=== PATIENT | female | born 1980 | race American Indian/Alaskan Native ===

== ENCOUNTER 2018-11-11 22:42 | Inpatient (IN) | payer SELFPAY ==
[2018-11-11] MEDS ORDERED: LACTATED RINGERS 1,000 ML IV ONE (23:13)
[2018-11-12] MEDS ORDERED: AMPICILLIN/NS 2 GM/100 ML 2 GM/100 ML BAG IV ONE ×2 (01:25→03:37)
[2018-11-12] MEDS ORDERED: PITOCin/NS 30 UNIT/500ML 30,000 MILLIUNITS/500 ML BAG IV ONE (01:26)
--- NOTE | 2018-11-12 01:59 | Ultrasound Report ---
US OB BPP wo non-stress INDICATION / CLINICAL INFORMATION: NRNST. COMPARISON: None available. FINDINGS: Single intrauterine gestation is identified in the cephalic presentation. heart rate 150 grade 2 anterior placenta is free of the os. Amniotic fluid by decreased. OTIS is 6. measurements: BPD 9.8 equal to 40 weeks 2 Head circumference 34.1 equal to 39 weeks 1 day Abdominal circumference 35.2 = 39 weeks 1 day Femur length 7.9=40 weeks 3 days Estimated body weight 3827 Biophysical profile score is 8 of 8. Signer Name: Juice Marino MD Signed: 11/12/2018 1:54 AM Workstation Name: [id number]
[2018-11-12] MEDS ORDERED: AMPICILLIN/NS 1 GM/50 ML 1 GM/50 ML BAG IV SCH (02:00)
[2018-11-12 02:13] LABS: Basophils % (Auto) 0.6 % (0.0-1.8); Eosinophils # (Auto) 0.1 K/mm3 (0.0-0.4); Eosinophils % (Auto) 0.9 % (0.0-4.3); Hematocrit 37.2 % (30.3-42.9); Hemoglobin 12.4 gm/dl (10.1-14.3); Lymphocytes # (Auto) 1.5 K/mm3 (1.2-5.4); Lymphocytes % (Auto) 19.9 % (13.4-35.0); Mean Corpuscular HGB Conc 33 % (30-34); Mean Corpuscular Volume 90 fl (79-97); Monocytes # (Auto) 0.7 K/mm3 (0.0-0.8); Monocytes % (Auto) 8.7 % (0.0-7.3); Platelet Count 191 K/mm3 (140-440); Red Blood Count 4.12 M/mm3 (3.65-5.03); Red Cell Distribution Width 16.3 % (13.2-15.2)
[2018-11-12] MEDS ORDERED: LACTATED RINGERS 1,000 ML IV SCH ×2 (03:00→04:00)
--- NOTE | 2018-11-12 03:03 | History and Physical Report ---
History of Present Illness Date of admission: 11/12/18 01:03 Chief complaint: uterine contractions History of present illness: 38yo 39 6/7 weeks presents to L&D complaining of uterine contractions and vaginal spotting. She has had no care this . She is from [facility] by way of [facility]. She reports good movement and no loss of fluid. An ultrasound was done revealing a at 39 6/7 weeks, cephalic presentation, OTIS 6.4. She is having occasional variables on NST. Past History Social history: other (no care, youngest child is 12) - Obstetrical History : 4 Number of Living Children: 3 Medications and Allergies Allergies Allergy/AdvReac Type Severity Reaction Status Date / Time No Known Allergies Allergy Unverified 11/11/18 23:11 Active Meds: Active Medications Oxytocin/Sodium Chloride (Pitocin/Ns 30 Unit/500ml) 30,000 milliunits in 500 mls @ 2 mls/hr IV DIRECT ONE; Protocol Stop: 11/22/18 11:25 Last Titration: 11/12/18 02:50 Dose: 6 milliunits/min, 6 mls/hr Documented by: Ampicillin Sodium (Ampicillin/Ns 1 Gm/50 Ml) 1 gm in 50 mls @ 100 mls/hr IV Q4HR JOHN Lactated Ringer's (Lactated Ringers) 1,000 mls @ 125 mls/hr IV DIRECT JOHN Last Admin: 11/12/18 02:44 Dose: 125 mls/hr Documented by: - Vital Signs Vital signs: Vital Signs Pulse BP 101 H 108/74 11/12/18 01:56 11/12/18 01:56 Temp Pulse Resp BP Pulse Ox 98.9 F 101 H 108/74 11/12/18 02:10 11/12/18 01:56 11/12/18 01:56 - Obstetrical FHR: category 2 Uterine Contraction Pattern: Irregular Results Result Diagrams: 11/12/18 01:22 Abnormal lab results 11/12/18 Range/Units 01:22 RDW 16.3 H (13.2-15.2) % [place] % (Auto) 8.7 H (0.0-7.3) % All other labs normal. Assessment and Plan - Patient Problems (1) 39 weeks gestation of Current Visit: Yes Status: Acute Plan to address problem: IV hydration Variable decelerations and low normal OTIS Admit for augmentation of labor GBS prophylaxis No care labs Pitocin augmentation. Anticipate spontaneous vaginal delivery.
[2018-11-12] MEDS ORDERED: STADOL ONE (03:16)
[2018-11-12] MEDS ORDERED: BRETHINE SUB-Q PRN (03:37)
[2018-11-12] MEDS ORDERED: MINERAL OIL PO PRN (03:37)
[2018-11-12] MEDS ORDERED: STADOL IV PRN (03:37)
[2018-11-12] MEDS ORDERED: ZOFRAN IV PRN ×2 (03:37→06:54)
[2018-11-12] MEDS ORDERED: XYLOCAINE 2% INFILTRATI ONE ×2 (03:47→05:58)
[2018-11-12] MEDS ORDERED: PITOCin/NS 30 UNIT/500ML 30 UNITS/500 ML BAG IV SCH (04:00)
[2018-11-12] MEDS ORDERED: PITOCin/NS 20 UNIT/1000ML DRIP 20 UNITS/1,000 ML BAG IV SCH (04:00)
[2018-11-12 04:23] LABS: Bacteria,Urine 1+ /HPF (Negative); Bilirubin,Urine NEG (Negative); Blood,Urine NEG (Negative); Color,Urine Yellow (Yellow); Mucus,Urine FEW /HPF; Protein,Urine <15 mg/dL mg/dL (Negative); Urobilinogen,Urine < 2.0 mg/dL (<2.0)
[2018-11-12] MEDS ORDERED: MORPHINE ONE (05:59)
[2018-11-12] MEDS ORDERED: AMPICILLIN 1 GM in NACL 0.9% 50 ML IV SCH (06:00)
[2018-11-12] MEDS ORDERED: MORPHINE IV ONE (06:01)
[2018-11-12 06:02] LABS: Hematocrit 38.9 % (30.3-42.9); Hemoglobin 12.9 gm/dl (10.1-14.3)
[2018-11-12] MEDS ORDERED: XYLOCAINE TOPICAL 2% 30ML TP ONE (06:02)
[2018-11-12] MEDS ORDERED: TYLENOL PO PRN (06:54)
[2018-11-12] MEDS ORDERED: LANSINOH TP PRN (06:54)
[2018-11-12] MEDS ORDERED: TUCKS PAD TP PRN (06:54)
[2018-11-12] MEDS ORDERED: BENADRYL PO PRN (06:54)
[2018-11-12] MEDS ORDERED: PHENERGAN PO PRN (06:54)
[2018-11-12] MEDS ORDERED: SODIUM CHLORIDE FLUSH SYRINGE 10 ML IV NR (07:00)
--- NOTE | 2018-11-12 07:11 | Procedure Note ---
OB Delivery Note - Delivery Surgeon: FARTUN CHIRINOS Estimated blood loss: other (250cc) - Vaginal Delivery position: OA Intrapartum events: shoulder dystocia Delivery augmentation: rupture of membranes, pitocin Delivery monitor: internal FHT Route of delivery: Delivery placenta: spontaneous Delivery laceration: 1st degree Delivery repair: vicryl Anesthesia: local, intravenous Delivery comments: 38yo at 39 6/7 with no care. I was called to room 2008 for delivery and patient was noted to be . A "turtle sign" was noted. Assistance was called to the room for language barrier and assistance with maintaining maternal position for delivery. At 0536 the head delivered, with downward traction the anterior shoulder did not deliver. At this time two RNs were in the delivery room. Further assistance was called to the room. Bola position was called and done. Suprapubic pressure was applied without delivery of the anterior shoulder. A hand was placed in the vagina and Padilla's maneuver was done with pressure applied to posterior surface of shoulder and shoulders delivered spontaneously. Fetus was placed in the bed, bulb suctioned and stimulated and noted to spontaneously cry. NICU had previously been called to the room. The cord was clamped and cut and infant taken to the warmer for evaluation. - Infant A at 1 minute: 7 at 5 minutes: 9 Infant Gender: Female (4193g, 9lb 4oz)
[2018-11-12] MEDS ORDERED: NORCO 5/325 PO PRN (09:36)
[2018-11-12] MEDS ORDERED: DULCOLAX PR PRN (10:00)
[2018-11-12] MEDS: IBUPROFEN PO SCH ×2 (11:15→23:31)
[2018-11-12] MEDS ORDERED: MILK OF MAGNESIA PO PRN (22:00)
[2018-11-13 01:30] LABS: Amphetamine Screen,Urine PRESUMPTIVE NEGATIVE; Benzodiazepines Screen,Urine PRESUMPTIVE NEGATIVE; Cannabinoid Screen,Urine PRESUMPTIVE NEGATIVE; Cocaine Screen,Urine PRESUMPTIVE NEGATIVE; Methadone Screen,Urine PRESUMPTIVE NEGATIVE; Opiate Screen,Urine PRESUMPTIVE NEGATIVE
[2018-11-13] MEDS: IBUPROFEN PO SCH ×4 (05:30→19:45)
[2018-11-13 06:20] LABS: Hematocrit 28.7 % (30.3-42.9); Hemoglobin 9.6 gm/dl (10.1-14.3)
--- NOTE | 2018-11-13 16:44 | Progress Note ---
Assessment and Plan - Patient Problems (1) 39 weeks gestation of Current Visit: Yes Status: Acute Plan to address problem: Recovering well. Plan discharge home tomorrow. (2) Anemia Current Visit: Yes Status: Acute Plan to address problem: Asymptomatic. Plan iron supplementation medication at discharge. Subjective - Subjective Interval history: 38yo s/p PPD#1 s/p LGA infant. Patient reports: appetite normal, voiding normally, ambulating normally : doing well, other (EKG ordered for ) Objective - Vital Signs Latest vital signs: Vital Signs Temp Pulse Resp BP Pulse Ox 11/13/18 09:24 97.7 F 101 H 16 98/66 98 11/13/18 00:31 98.2 F 105 H 20 105/65 98 11/12/18 20:18 98.2 F 73 20 117/62 98 Intake and Output 11/13/18 11/13/18 11/13/18 07:59 15:59 23:59 Intake Total 120 Output Total 400 Balance -280 Intake: Oral 120 Output: Urine 400 Void 400 Other: Total, Intake Amount 120 Total, Output Amount 400 - Exam Uterus: Present: firm, fundal height below umbilicus - Labs Labs: Abnormal lab results 11/13/18 Range/Units 05:51 Hgb 9.6 L D (10.1-14.3) gm/dl Hct 28.7 L D (30.3-42.9) %
--- NOTE | 2018-11-13 18:55 | Discharge Summary ---
Providers - Providers Date of Admission: 11/12/18 01:03 Attending physician: FARTUN CHIRINOS Primary care physician: FARTUN CHIRINOS Hospitalization Reason for admission: active labor Delivery: Procedure details: OB Delivery Note - Delivery Surgeon: FARTUN CHIRINOS Estimated blood loss: other (250cc) - Vaginal Delivery position: OA Intrapartum events: shoulder dystocia Delivery augmentation: rupture of membranes, pitocin Delivery monitor: internal FHT Route of delivery: Delivery placenta: spontaneous Delivery laceration: 1st degree Delivery repair: vicryl Anesthesia: local, intravenous Delivery comments: 38yo at 39 6/7 with no care. I was called to room 2008 for delivery and patient was noted to be . A "turtle sign" was noted. Assistance was called to the room for language barrier and assistance with maintaining maternal position for delivery. At 0536 the head delivered, with downward traction the anterior shoulder did not deliver. At this time two RNs were in the delivery room. Further assistance was called to the room. Bola position was called and done. Suprapubic pressure was applied without delivery of the anterior shoulder. A hand was placed in the vagina and Padilla's maneuver was done with pressure applied to posterior surface of shoulder and shoulders delivered spontaneously. Fetus was placed in the bed, bulb suctioned and stimulated and noted to spontaneously cry. NICU had previously been called to the room. The cord was clamped and cut and taken to the warmer for evaluation. - A at 1 minute: 7 at 5 minutes: 9 Gender: Female (4193g, 9lb 4oz) Other procedures: none baby: female Pertinent studies: Abnormal Lab Results 11/12/18 11/13/18 11/13/18 22:10 05:51 05:51 Hgb 9.6 L D Hct 28.7 L D Hemoglobin A1c 5.6 Urine Opiates Screen Presumptive negative Urine Methadone Screen Presumptive negative Ur Barbiturates Screen Presumptive negative Ur Phencyclidine Scrn Presumptive negative Ur Amphetamines Screen Presumptive negative U Benzodiazepines Scrn Presumptive negative Urine Cocaine Screen Presumptive negative U Marijuana (THC) Screen Presumptive negative Drugs of Abuse Note Disclamer Condition at discharge: Stable Disposition: DC-01 TO HOME OR SELFCARE - Discharge Diagnoses (1) 39 weeks gestation of Status: Acute (2) Anemia Status: Acute Plan - Discharge Medications Prescriptions: Ferrous Sulfate [Feosol 325 MG tab] 325 mg PO BID 30 Days #60 tablet Ibuprofen [Motrin 800 MG tab] 800 mg PO Q8HR PRN 30 Days #30 tablet PRN Reason: Pain, Moderate (4-6) - Provider Discharge Summary Activity: no sex for 6 weeks, no heavy lifting 4 weeks, no strenuous exercise Additional instructions: [] Smoking cessation referral if applicable(refer to patient education folder for contact #) [] Refer to [facility]'s [facility] Booklet Call your doctor immediately for: * Fever > 100.5 * Heavy vaginal bleeding ( >1 pad per hour) * Severe persistent headache * Shortness of breath * Reddened, hot, painful area to leg or breast * Drainage or odor from incision. * Keep incision clean and dry at all times and follow doctor's instructions regarding bathing/showering - Follow up plan Follow up: FARTUN CHIRINOS MD [Primary Care Provider] - 7 Days
[2018-11-14] MEDS: IBUPROFEN PO SCH ×3 (02:00→14:10)
[2018-11-14 13:59] VITALS: BP 111/70
--- NOTE | 2018-11-14 14:58 | Ultrasound Report ---
OB ULTRASOUND >= 14 WEEKS FETUS INDICATION: no pre care COMPARISON: None at this facility FINDINGS: A single gestation intrauterine is present with cephalic presentation. The placenta is ante rior, grade 2 and free of the cervical os. heart tones measure 153 bpm. Amniotic fluid volume is decreased with a fluid index of 6.4. anatomical survey was not performed. Biparietal diameter is 9.8 cm which equals 40 weeks 2 days. Head circumference is 34.1 cm which equals 39 weeks 2 days. Abdominal circumference is 35.2 cm which equals 39 weeks 1 day. Femur length is 7.9 cm which equals 40 weeks 3 days. Overall estimated sonographic age is 39 weeks 6 days. Estimated due date of 11/12/2018. HC/AC ratio: 0.97 Cephalic index: 82 Estimated weight 3827 g +/- 5 166 g IMPRESSION: Viable, single intrauterine as outlined above. There is mild oligohydramnios with OTIS measu ring 6.4. Otherwise, unremarkable exam. Signer Name: Jordin Suh Jr, MD Signed: 11/14/2018 2:54 PM Workstation Name: [id number]
== END 2018-11-14 14:02 | disposition home or self-care (01) | DRG 807 ==
LOC: TRG 22:42 → LD 11-12 01:03 → OB 11-12 08:49
PROVIDERS: ADMIT Obstetrics & Gynecology; ATTEND Obstetrics & Gynecology
PROC: 10E0XZZ Delivery of Products of Conception, External Approach (ICD-10-PCS; principal; 2018-11-12)
PROC: 4A033R1 Measurement of Arterial Saturation, Peripheral, Percutaneous Approach (ICD-10-PCS; 2018-11-12)
PROC: 0HQ9XZZ Repair Perineum Skin, External Approach (ICD-10-PCS; 2018-11-12)
DX: O66.0 Obstructed labor due to shoulder dystocia (principal); Z37.0 Single live birth; O99.02 Anemia complicating childbirth; D64.9 Anemia, unspecified; O70.0 First degree perineal laceration during delivery; Z3A.39 39 weeks gestation of pregnancy
CPT/HCPCS: 36415; 76816; 76819; 80307; 81001; 82803; 83036; 85014; 85018; 85025; 86592; 86706; 86762; 86850; 86900; 86901; 87086; 87806; 88307; G0378; J0290; J0595; J2270; J2590; J7120